=== PATIENT | female | born 1990 | race Caucasian/White ===

== ENCOUNTER 2017-04-23 22:07 | Emergency (ER) | payer OTHER ==
[~2017-04-23] VITALS: Ht 160 cm; Wt 69.9 kg
[2017-04-23 22:32] VITALS: BP 116/55
--- NOTE | 2017-04-23 22:55 | NUR ---
PT TAKEN TO BED 7
--- NOTE | 2017-04-23 23:00 | NUR ---
PATIENT PRESENTS TO ED WITH C/O NECK PAIN X 2 WKS. NO TRAUMA NOR INJURY. TOOK MOTRIN AT 1400. NO MEDICAL HX. DENIES N/V/D; SKIN IS PINK/WARM/DRY; AAOX4 WITH EVEN AND STEADY GAIT; LUNGS CLEAR BL; HR EVEN AND REGULAR; PT DENIES ANY FEVER, CP, SOB, OR COUGH AT THIS TIME; PATIENT STATES PAIN OF 8/10 AT THIS TIME; VSS; PATIENT POSITIONED FOR COMFORT; HOB ELEVATED; BEDRAILS UP X2; BED DOWN. ER MD MADE AWARE OF PT STATUS.
[2017-04-23 23:12] VITALS: BP 109/72
--- NOTE | 2017-04-23 23:12 | NUR ---
Patient discharged with v/s stable. Written and verbal after care instructions given and explained BY DR. LIU . Patient alert, oriented and verbalized understanding of instructions. Ambulatory with steady gait. All questions addressed prior to discharge. ID band removed. Patient advised to follow up with PMD. Rx of NAPROSYN AND AUGMENTIN given. Patient educated on indication of medication including possible reaction and side effects. Opportunity to ask questions provided and answered.
== END 2017-04-23 23:12 | disposition home or self-care (01) ==
LOC: MED 22:07
DX: H70.001 Acute mastoiditis without complications, right ear (principal)
CPT/HCPCS: 99283

== ENCOUNTER 2017-05-03 22:43 | Emergency (ER) | payer OTHER ==
[~2017-05-03] VITALS: Ht 160 cm; Wt 69.9 kg
[2017-05-03 22:45] VITALS: BP 109/60
--- NOTE | 2017-05-03 22:52 | NUR ---
AMBULATED TO ER BED 8
[2017-05-03 22:53] VITALS: BP 109/60
--- NOTE | 2017-05-03 22:54 | NUR ---
Patient being evaluated by physician at bedside.
--- NOTE | 2017-05-03 22:56 | NUR ---
PATIENT PRESENTS TO ED WITH C/O NECK AND EAR PAIN X 3 WEEKS . PT DENIES N/V/D; SKIN IS PINK/WARM/DRY; AAOX4 WITH EVEN AND STEADY GAIT; LUNGS CLEAR BL; HR EVEN AND REGULAR; PT DENIES ANY FEVER, CP, SOB, OR COUGH AT THIS TIME; PATIENT STATES PAIN OF 8/10 AT THIS TIME; VSS; PATIENT POSITIONED FOR COMFORT; HOB ELEVATED; BEDRAILS UP X2; BED DOWN. ER MD MADE AWARE OF PT STATUS.
[2017-05-03] MEDS ORDERED: LIDOCAINE 1% 500 MG/50 ML VIAL INJ ONE (23:05)
--- NOTE | 2017-05-03 23:45 | NUR ---
Patient discharged with v/s stable. Written and verbal after care instructions given and explained. Patient verbalized understanding. Ambulatory with steady gait. All questions addressed prior to discharge. Advised to follow up with PMD.
== END 2017-05-03 23:45 | disposition home or self-care (01) ==
LOC: MED 22:43
DX: M26.622 Arthralgia of left temporomandibular joint (principal)
CPT/HCPCS: 99284; J2001

== ENCOUNTER 2017-05-15 21:29 | Emergency (ER) | payer OTHER ==
[~2017-05-15] VITALS: Ht 160 cm; Wt 69.6 kg
[2017-05-15 21:43] VITALS: BP 115/76
--- NOTE | 2017-05-15 22:55 | NUR ---
PT TAKEN TO OF2 Addendum: 05/15/17 at 2257 by DEBBIE PT TAKEN TO OF1
--- NOTE | 2017-05-15 23:27 | NUR ---
Dr. Franklin evaluating patient
[2017-05-15] MEDS ORDERED: DEXAMETHASONE 4 MG/ML VIAL IM ONE (23:35)
[2017-05-15] MEDS ORDERED: LIDOCAINE 1% 500 MG/50 ML VIAL INJ ONE (23:35)
[2017-05-16 01:00] VITALS: BP 123/67
--- NOTE | 2017-05-16 01:00 | NUR ---
Patient discharged with v/s stable. Written and verbal after care instructions given and explained. Patient alert, oriented and verbalized understanding of instructions. Ambulatory with steady gait. All questions addressed prior to discharge. ID band removed. Patient advised to follow up with PMD. Rx of Flexeril given. Patient educated on indication of medication including possible reaction and side effects. Opportunity to ask questions provided and answered.
== END 2017-05-16 01:00 | disposition home or self-care (01) ==
LOC: MED 21:29
DX: M54.2 Cervicalgia (principal)
CPT/HCPCS: 20552; 99284; J1100; J2001

== ENCOUNTER 2018-09-13 19:36 | Emergency (ER) | payer SELFPAY ==
[~2018-09-13] VITALS: Ht 160 cm; Wt 70.4 kg
[2018-09-13 20:00] VITALS: BP 115/69
--- NOTE | 2018-09-13 20:25 | NUR ---
PT TAKEN TO BED 2
--- NOTE | 2018-09-13 20:34 | NUR ---
PATIENT PRESENTS TO ED WITH C/O RLQ ABD X3 DAYS. PT STATES SHE HAS CONSTANT 5/10 SHARP ABD PAIN, TAKEN TUMS AND TYLENOL AT HOME W/O RELIEF. DENIES N/V/D; SKIN IS PINK/WARM/DRY; AAOX4 WITH EVEN AND STEADY GAIT; LUNGS CLEAR BL; HR EVEN AND REGULAR; PT DENIES ANY FEVER, CP, SOB, OR COUGH AT THIS TIME; VSS; PATIENT POSITIONED FOR COMFORT; IN GOWN; HOB ELEVATED; BEDRAILS UP X1; BED DOWN. ER MD MADE AWARE OF PT STATUS. PMH--DENIES RX--DENIES
[2018-09-13 22:33] VITALS: BP 111/71
== END 2018-09-13 22:34 | disposition home or self-care (01) ==
LOC: MED 19:36
DX: R10.31 Right lower quadrant pain (principal)
CPT/HCPCS: 81002; 81025; 99284

== ENCOUNTER 2019-11-17 19:20 | Emergency (ER) | payer OTHER ==
[~2019-11-17] VITALS: Ht 160 cm; Wt 71.2 kg
[2019-11-17 19:34] VITALS: BP 122/78
--- NOTE | 2019-11-17 19:39 | NUR ---
PT AMBULATED TO BE CHAIR B
--- NOTE | 2019-11-17 20:16 | NUR ---
29 Y/O FEMALE PRESENTS WITH BODY ACHES/NAUSEA/DIARRHEA FOR 1 WEEK. DENIES ANY SOB/COUGH/CHEST PAIN. PT STATES SHE HAS BEEN TAKING IBUPROFEN AT HOME WITH NO RELIEF. DENIES FEVER/CHILLS. LMP: 11/16/19/ RESP EVEN AND UNLABORED. LUNG SOUNDS CLEAR IN BILAT LOBES. BOWEL SOUNDS NORMOACTIVE. NO PMH NKA
[2019-11-17] MEDS ORDERED: DIAZEPAM 5 MG TAB PO ONE (20:55)
[2019-11-17] MEDS ORDERED: KETOROLAC 30 MG/ML VIAL IM ONE (20:55)
--- NOTE | 2019-11-17 21:05 | NUR ---
PT TAKEN TO XRAY VIA WHEELCHAIR
--- NOTE | 2019-11-17 21:12 | NUR ---
PT BACK FROM XRAY VIA W/C.
[2019-11-17 21:56] LABS: ANION GAP 10.8 (8-16); CARBON DIOXIDE 29.3 mmol/L (21-32); POTASSIUM 3.1 mmol/L (3.5-5.1)
[2019-11-17 21:57] LABS: CREATININE 0.8 mg/dL (0.6-1.3)
[2019-11-17] MEDS ORDERED: POTASSIUM CHLORIDE 10 MEQ TABER PO ONE (22:00)
[2019-11-17 22:16] VITALS: BP 122/78
--- NOTE | 2019-11-17 22:17 | NUR ---
Patient discharged with v/s stable. Written and verbal after care instructions given and explained. Patient alert, oriented and verbalized understanding of instructions. Ambulatory with steady gait. All questions addressed prior to discharge. ID band removed. Patient advised to follow up with PMD. Rx of NAPROSYN, VALIUM given. Patient educated on indication of medication including possible reaction and side effects. Opportunity to ask questions provided and answered.
== END 2019-11-17 22:17 | disposition home or self-care (01) ==
LOC: MED 19:20
DX: M79.10 Myalgia, unspecified site (principal); E87.6 Hypokalemia
CPT/HCPCS: 36415; 71045; 80048; 96372; 99284; J1885; Q0092

== ENCOUNTER 2022-03-04 08:49 | Emergency (ER) | payer OTHER ==
[~2022-03-04] VITALS: Ht 160 cm; Wt 72.6 kg
[2022-03-04 08:56] VITALS: BP 131/83
--- NOTE | 2022-03-04 09:00 | NUR ---
PT AMB TO BED 4.
--- NOTE | 2022-03-04 09:30 | NUR ---
PT AMBULATED TO RESTROOM WITH A STEADY GAIT AT THIS TIME.
--- NOTE | 2022-03-04 09:42 | NUR ---
31 Y/O FEMALE C/O EPIGASTRIC PAIN 03/04 DESCRIBES ACHING NON-RADIATING WITH DIARRHEA X 2 DAYS. DENIES FEVER/CHILLS. DENIES PMH NKA
[2022-03-04] MEDS ORDERED: NACL 0.9% 1,000 ML IV ONE (09:50)
[2022-03-04] MEDS ORDERED: KETOROLAC 30 MG/ML VIAL IVP ONE (09:50)
[2022-03-04] MEDS ORDERED: ONDANSETRON 4 MG/2 ML VIAL IVP ONE (09:50)
[2022-03-04] MEDS ORDERED: DICYCLOMINE HCL LIQUID 20 MG, ALUMINUM HYD/MAG/SIMETHICONE 30 ML, LIDOCAINE VISCOUS 2% ... PO ONE ×3 (09:50)
--- NOTE | 2022-03-04 10:00 | NUR ---
COLLECTED BLOOD WORK VIA IV START, GOOD BLOOD RETURN, WALKED TO LAB.
[2022-03-04 10:22] LABS: BASOPHILS % (AUTO) 0.4 % (0.0-2.0); EOSINOPHILS # (AUTO) 0.1 K/uL (0-0.4); EOSINOPHILS % (AUTO) 0.7 % (0.0-4.0); HEMATOCRIT 32.8 % (36-48); HEMOGLOBIN 10.2 g/dL (12.0-16.0); LYMPHOCYTES # (AUTO) 1.4 K/uL (2.5-16.5); LYMPHOCYTES % (AUTO) 17.8 % (20.5-51.1); MEAN CORPUSCULAR HEMOGLOBIN 23 pg (27-31); MEAN CORPUSCULAR HGB CONC 31 g/dL (33-37); MEAN CORPUSCULAR VOLUME 73.1 fL (80-94); MONOCYTES # (AUTO) 0.7 K/uL (0.8-1.0); MONOCYTES % (AUTO) 8.8 % (1.7-9.3); NEUTROPHILS # (AUTO) 5.5 K/uL (1.8-7.7); NEUTROPHILS % (AUTO) 72.3 % (42.2-75.2); PLATELET COUNT (AUTO) 355 K/uL (140-450); RED BLOOD CELL COUNT(AUTO) 4.49 MIL/uL (4.20-5.40); RED CELL DISTRIBUTION WIDTH 18.5 % (11.6-13.7); WHITE BLOOD COUNT (AUTO) 7.6 K/uL (4.8-10.8)
[2022-03-04] MEDS ORDERED: DICYCLOMINE HCL LIQUID 10 MG/5 ML UDC ONE (10:35)
[2022-03-04] MEDS ORDERED: ALUMINUM HYD/MAG/SIMETHICONE 30 ML UDC ONE (10:35)
[2022-03-04 10:54] LABS: ALBUMIN 3.9 g/dL (3.4-5.0); ANION GAP 13.7 (8-16); CARBON DIOXIDE 27.3 mmol/L (21-32); CREATININE 0.7 mg/dL (0.6-1.3); TOTAL BILIRUBIN 0.2 mg/dL (0.0-1.0)
[2022-03-04] MEDS ORDERED: FAMO-92 PO (12:20)
[2022-03-04] MEDS ORDERED: SIME125T38 PO (12:20)
--- NOTE | 2022-03-04 13:11 | NUR ---
Patient discharged with v/s stable. Written and verbal after care instructions given GASTRITIS and explained. Patient alert, oriented and verbalized understanding of instructions. Ambulatory with steady gait. All questions addressed prior to discharge. ID band removed. Patient advised to follow up with PMD. Rx of MAALOX, PEPCIDgiven. Patient educated on indication of medication including possible reaction and side effects. Opportunity to ask questions provided and answered.
[2022-03-04 15:53] LABS: APPEARANCE,URINE CLEAR (CLEAR); BILIRUBIN,URINE NEGATIVE (NEGATIVE); BLOOD, URINE 3+ (NEGATIVE); COLOR,URINE YELLOW (YELLOW); LEUKOCYTE ESTERASE ,URINE NEGATIVE (NEGATIVE); NITRITE, URINE NEGATIVE (NEGATIVE); UGLUCOSE NEGATIVE (NEGATIVE)
[2022-03-04 16:11] LABS: RBC,URINE 0-5 /HPF (0-5)
== END 2022-03-04 13:11 | disposition home or self-care (01) ==
LOC: MED 08:49
DX: K52.9 Noninfective gastroenteritis and colitis, unspecified (principal); K29.70 Gastritis, unspecified, without bleeding
CPT/HCPCS: 36415; 74176; 80053; 81001; 81025; 84702; 85025; 87086; 96374; 96375; 99284; J1885; J2405; J7030